=== PATIENT | female | born 1985 | race Caucasian/White ===

== ENCOUNTER 2017-09-16 22:54 | Observation (INO) | payer OTHER ==
[~2017-09-16] VITALS: Ht 152.4 cm; Wt 78.0 kg
[~2017-09-16 22:54] MED LIST: PREN1TAB80 PO
[2017-09-16] MEDS ORDERED: FOLI0.4T4 PO (23:18)
[2017-09-16 23:42] LABS: GLUCOMETER DEV NAME(LOC) 4S 8; GLUCOSE,POINT OF CARE 92 MG/DL (70-110)
[2017-09-16] MEDS ORDERED: RINGERS SOLUTION,LACTATED 1,000 ML IV ONE (23:48)
[2017-09-17] MEDS ORDERED: NIFEdipine 10 MG CAPSULE PO ONE
[2017-09-17] MEDS ORDERED: RINGERS SOLUTION,LACTATED 1,000 ML IV ONE
[2017-09-17] MEDS: DEXTROSE 5%-LACTATED RINGERS 1,000 ML IV SCH ×2 (00:09→08:10)
[2017-09-17 00:13] VITALS: BP 107/67
[2017-09-17 04:13] LABS: APPEARANCE,URINE CLEAR (CLEAR); BILIRUBIN,URINE NEGATIVE (NEGATIVE); GLUCOSE, URINE (UA) NEGATIVE (NEGATIVE); KETONES,URINE 15 mg/dL (NEGATIVE); LEUKOCYTE ESTERASE ,URINE SMALL (NEGATIVE); NITRATE,URINE NEGATIVE (NEGATIVE); OCCULT BLOOD,URINE NEGATIVE (NEGATIVE); PH,URINE 6.5 (5.0-8.0); PROTEIN,URINE NEGATIVE (NEGATIVE)
[2017-09-17 04:30] LABS: RBC,URINE None Seen /HPF (0-2); WBC,URINE 0-2 /HPF (0-5)
[2017-09-17 04:31] LABS: BACTERIA,URINE None Seen /HPF (None Seen); SQUAMOUS EPITHELIAL CELL,UR Few /LPF (None Seen); YEAST,URINE None Seen /HPF (None Seen)
== END 2017-09-17 09:50 | disposition home or self-care (01) ==
LOC: 4S 22:54
PROVIDERS: ADMIT Obstetrics & Gynecology; ATTEND Obstetrics & Gynecology
DX: O62.9 Abnormality of forces of labor, unspecified (principal); O26.893 Other specified pregnancy related conditions, third trimester; R10.9 Unspecified abdominal pain; Z3A.36 36 weeks gestation of pregnancy
CPT/HCPCS: 59025 ×2; 81001; 82962; 96360; 96361; G0378 ×2; J7120; X7700

== ENCOUNTER 2017-10-01 11:28 | Inpatient (IN) | payer OTHER ==
[~2017-10-01] VITALS: Ht 149.9 cm; Wt 78.0 kg
[~2017-10-01 11:28] MED LIST changes: +FOLI0.4T4 PO
[2017-10-05] MEDS ORDERED: MORPHINE SULFATE/PF 0.5 MG/ML 10 ML AMP IVP ONE (12:00)
[2017-10-05] MEDS ORDERED: FentaNYL CITRATE-PF 100 MCG/2 ML VIAL IVP ONE (12:00)
[2017-10-05 16:00] VITALS: BP 120/76
[2017-10-05] MEDS: RINGERS SOLUTION,LACTATED 1,000 ML IV SCH ×3 (17:50→22:38)
[2017-10-05] MEDS ORDERED: RINGERS SOLUTION,LACTATED 1,000 ML IV ONE ×2 (20:09→22:37)
[2017-10-05] MEDS ORDERED: METOCLOPRAMIDE HCL 5 MG/ML 2 ML VIAL IVP ONE (20:15)
[2017-10-05] MEDS ORDERED: CITRIC ACID/SODIUM CITRATE 30 ML SOLUTION UDCUP PO ONE (20:15)
[2017-10-05] MEDS ORDERED: METOCLOPRAMIDE HCL 5 MG/ML 2 ML VIAL ONE (20:15)
[2017-10-05] MEDS ORDERED: CITRIC ACID/SODIUM CITRATE 30 ML SOLUTION UDCUP ONE (20:15)
[2017-10-05 20:40] LABS: BASOPHILS % (AUTO) 0.5 % (0.0-2.0); EOSINOPHILS % (AUTO) 0.9 % (1.0-6.0); LYMPHOCYTES # (AUTO) 3.2 K/uL (1.0-4.8); LYMPHOCYTES % (AUTO) 30.8 % (22.0-44.0); MEAN CORPUSCULAR HEMOGLOBIN 21.7 pg (26.0-34.0); MEAN CORPUSCULAR HGB CONC 32.2 G/dL (31.0-37.0); MEAN CORPUSCULAR VOLUME 67 fL (80-100); MONOCYTES # (AUTO) 0.7 K/uL (0.1-1.0); MONOCYTES % (AUTO) 6.6 % (2.0-9.0); NEUTROPHILS # (AUTO) 6.3 K/uL (1.8-7.7); NEUTROPHILS % (AUTO) 61.2 % (40.0-70.0); PLATELET COUNT (AUTO)-OB 433 K/uL (150-450); RED BLOOD CELL COUNT(AUTO) 4.16 MIL/uL (4.00-5.20); RED CELL DISTRIBUTION WIDTH 19.6 % (11.5-14.5)
[2017-10-05] MEDS ORDERED: LANOLIN 7 GM OINTMENT TP PRN (21:00)
[2017-10-05] MEDS ORDERED: OxyCODONE HCL/ACETAMINOPHEN 5-325 MG TABLET PO PRN (21:00)
[2017-10-05] MEDS ORDERED: GUM MASTIC/STORAX/MSAL/ALCOHOL LIQUID 0.67 ML VIAL TP ONE (21:12)
[2017-10-05] MEDS ORDERED: NALBUPHINE HCL 10 MG/ML VIAL IVP PRN ×3 (21:15→21:30)
[2017-10-05] MEDS ORDERED: MORPHINE SULFATE 10 MG/ML SYRINGE IVP PRN ×2 (21:15→21:30)
[2017-10-05] MEDS ORDERED: DiphenhydrAMINE HCL 50 MG/ML VIAL IVP PRN ×2 (21:15→21:30)
[2017-10-05] MEDS ORDERED: MEPERIDINE-PF 25 MG/ML SYRINGE IVP PRN (21:15)
[2017-10-05] MEDS ORDERED: ACETAMINOPHEN 1000 MG/ISO-OSM 100 ML IV ONE ×2 (21:15→22:14)
[2017-10-05] MEDS ORDERED: ONDANSETRON HCL 4 MG/2 ML VIAL IVP PRN ×2 (21:15→21:30)
[2017-10-05] MEDS ORDERED: FentaNYL CITRATE-PF 100 MCG/2 ML VIAL IVP PRN ×3 (21:15→21:30)
[2017-10-05] MEDS ORDERED: NALOXONE HCL 0.4 MG/ML VIAL IVP PRN (21:30)
[2017-10-06] MEDS ORDERED: INFLUENZA VIRUS VACCINE QVS 2017-18 (3YR+)/PF 60 MCG/0.5 ML SYRINGE IM ONE (04:30)
[2017-10-06] MEDS: RINGERS SOLUTION,LACTATED 1,000 ML IV SCH ×2 (05:26→12:29)
[2017-10-06] MEDS ORDERED: ACETAMINOPHEN 1000 MG/ISO-OSM 100 ML IV SCH (06:00)
[2017-10-06 06:43] LABS: BASOPHILS % (AUTO) 0.2 % (0.0-2.0); EOSINOPHILS % (AUTO) 0.5 % (1.0-6.0); HEMATOCRIT 24.5 % (36-46); HEMOGLOBIN 7.9 g/dL (12.0-16.0); LYMPHOCYTES # (AUTO) 2.2 K/uL (1.0-4.8); LYMPHOCYTES % (AUTO) 19.4 % (22.0-44.0); MEAN CORPUSCULAR HEMOGLOBIN 21.9 pg (26.0-34.0); MEAN CORPUSCULAR VOLUME 69 fL (80-100); MONOCYTES # (AUTO) 0.7 K/uL (0.1-1.0); MONOCYTES % (AUTO) 6.3 % (2.0-9.0); NEUTROPHILS # (AUTO) 8.5 K/uL (1.8-7.7); NEUTROPHILS % (AUTO) 73.6 % (40.0-70.0); PLATELET COUNT (AUTO)-OB 351 K/uL (150-450); RED BLOOD CELL COUNT(AUTO) 3.58 MIL/uL (4.00-5.20); RED CELL DISTRIBUTION WIDTH 18.9 % (11.5-14.5)
[2017-10-06] MEDS ORDERED: OXYGEN THERAPY IH SCH ×3 (08:00)
[2017-10-06] MEDS ORDERED: SOD FERRIC GLUC COMPLX/SUCROSE 125 MG in SODIUM CHLORIDE 0.9% 100 ML IV SCH (09:00)
[2017-10-06] MEDS: IBUPROFEN 800 MG TABLET PO PRN (20:48)
[2017-10-06] MEDS: OxyCODONE HCL/ACETAMINOPHEN 5-325 MG TABLET PO PRN (20:49)
[2017-10-06] MEDS: SENNA/DOCUSATE SODIUM 187-50 MG TABLET PO SCH (20:49)
[2017-10-07] MEDS: IBUPROFEN 800 MG TABLET PO PRN ×3 (04:39→16:07)
[2017-10-07] MEDS: SENNA/DOCUSATE SODIUM 187-50 MG TABLET PO SCH (08:29)
[2017-10-07] MEDS: OxyCODONE HCL/ACETAMINOPHEN 5-325 MG TABLET PO PRN (10:10)
[2017-10-07] MEDS ORDERED: IBUP-2071 PO (12:04)
[2017-10-07] MEDS ORDERED: DSS100 PO (12:05)
[2017-10-07] MEDS ORDERED: HYDR-309 PO (12:08)
== END 2017-10-07 19:55 | disposition home or self-care (01) | DRG 765 ==
LOC: OBSVTOIN 10-05 15:40 → 4S 10-05 15:40
PROVIDERS: ADMIT Obstetrics & Gynecology; ATTEND Obstetrics & Gynecology
PROC: 10D00Z1 Extraction of Products of Conception, Low, Open Approach (ICD-10-PCS; principal; 2017-10-05)
PROC: 0UB70ZZ Excision of Bilateral Fallopian Tubes, Open Approach (ICD-10-PCS; 2017-10-05)
PROC: 3E0234Z Introduction of Serum, Toxoid and Vaccine into Muscle, Percutaneous Approach (ICD-10-PCS; 2017-10-06)
DX: O34.211 Maternal care for low transverse scar from previous cesarean delivery (principal); O60.23X0 Term delivery with preterm labor, third trimester, not applicable or unspecified; R71.0 Precipitous drop in hematocrit; O90.89 Other complications of the puerperium, not elsewhere classified; Z37.0 Single live birth; Z79.899 Other long term (current) drug therapy; Z30.2 Encounter for sterilization; Z3A.38 38 weeks gestation of pregnancy; Z23 Encounter for immunization
CPT/HCPCS: 86850; 86900; 86901; 87081; 88302; 90471; J0131; J2274; J2405; J2765; J2916; J3010; J7050; J7120